=== PATIENT | male | born 1965 | race Caucasian/White ===

== ENCOUNTER 2022-01-26 06:08 | Inpatient (IN) ==
[~2022-01-26 06:08] MED LIST: Buffered Lidocaine 1% SYRIN 1 ml INTRADERM ONE; Lactated Ringers 1000 ml BAG 1,000 ML IV SCH
[2022-01-26] MEDS ORDERED: ceFAZolin 1 GM in Dextrose 1 GM/50 ML BAG ONE (06:58)
[2022-01-26] MEDS ORDERED: ceFAZolin 2 GM PREMIX 2 GM/50 ML BAG ONE (06:58)
[2022-01-26] MEDS ORDERED: Bupivacaine 0.25% SDV 30 ML ONE (07:09)
[2022-01-26] MEDS ORDERED: Bupivacaine 0.5% SDV PF 30ML VIAL ONE (07:09)
[2022-01-26] MEDS ORDERED: Lidocaine 1% VIAL 10 MG/ML VIAL 30 ML ONE (07:09)
[2022-01-26] MEDS ORDERED: fentaNYL 100 mcg/2 ml 50 MCG/ML VIAL ONE ×2 (07:19→13:15)
[2022-01-26] MEDS ORDERED: Midazolam 2 mg/2 ml VIAL 1 mg/ml 2 ml VIAL (2 mg) ONE (07:20)
[2022-01-26] MEDS ORDERED: Rocuronium 50 mg VIAL 10 mg/ml 5 ml VIAL (50 mg) ONE ×5 (07:38→10:11)
[2022-01-26] MEDS ORDERED: Dexamethasone IV 4 MG/ML VIAL 1 ml VIAL ONE (07:52)
[2022-01-26] MEDS ORDERED: Ondansetron 4 mg VIAL 2 MG/ML 2 ml VIAL ONE (07:52)
[2022-01-26] MEDS ORDERED: Propofol 10 MG/ML 20 ML BTL ONE (07:52)
[2022-01-26] MEDS ORDERED: Lidocaine 2% PF 5 ML VIAL ONE (07:52)
[2022-01-26] MEDS ORDERED: HYDROmorphone 0.5 MG/0.5 ML SYRINGE ONE ×3 (09:01→12:57)
[2022-01-26] MEDS ORDERED: Acetaminophen IV 1 GM/100ML 1,000 MG/100 ML BAG IV ONE (09:01)
[2022-01-26] MEDS ORDERED: Acetaminophen IV 1 GM/100ML 1,000 MG/100 ML BAG IV PRN (10:06)
[2022-01-26] MEDS ORDERED: fentaNYL 100 mcg/2 ml 50 MCG/ML VIAL IV PRN (10:06)
[2022-01-26] MEDS ORDERED: Ondansetron 4 mg VIAL 2 MG/ML 2 ml VIAL IV PRN (10:06)
[2022-01-26] MEDS ORDERED: Naloxone 0.4 mg VIAL 0.4 mg/ml 1 ml VIAL IV PRN (10:06)
[2022-01-26] MEDS ORDERED: HYDROmorphone 1 MG/1 ML SYRINGE IV PRN (10:06)
[2022-01-26] MEDS ORDERED: Cisatracurium 2 MG/ML MDV 5 ML ONE (11:05)
[2022-01-26] MEDS ORDERED: ceFAZolin 1 GM ADVAN 1 GM ADDV.VIAL IVPB ONE (11:32)
[2022-01-26] MEDS ORDERED: Sugammadex 500 MG/5 ML 5 ml VIAL IV PUSH ONE (12:17)
[2022-01-26] MEDS ORDERED: Sodium Chloride 0.9% 20 ML ONE (12:37)
[2022-01-26] MEDS ORDERED: ROPIVACAINE 5 MG/ML 30 ML BTL (0.5%) ONE (12:37)
[2022-01-26] MEDS ORDERED: HYDROmorphone 1 MG/1 ML SYRINGE ONE (13:15)
[2022-01-26] MEDS: Lactated Ringers 1000 ml BAG 1,000 ML IV SCH (14:51)
[2022-01-26] MEDS: HYDROmorphone 0.5 MG/0.5 ML SYRINGE IV SLOW PU PRN (15:09)
[2022-01-26] MEDS: Ondansetron 4 mg VIAL 2 MG/ML 2 ml VIAL IV PRN (22:07)
[2022-01-26] MEDS: [UNRECOGNIZED DRUG - REMARK] IVPB SCH (23:04)
[2022-01-26] MEDS: Enoxaparin 40 MG/0.4 ML SYR SUBCUT SCH (23:13)
[2022-01-27] MEDS: Ondansetron 4 mg VIAL 2 MG/ML 2 ml VIAL IV PRN ×5 (02:12→21:16)
[2022-01-27] MEDS: [UNRECOGNIZED DRUG - REMARK] IVPB SCH ×2 (04:43→12:39)
[2022-01-27] MEDS: Lactated Ringers 1000 ml BAG 1,000 ML IV SCH (05:45)
[2022-01-27] MEDS: Enoxaparin 40 MG/0.4 ML SYR SUBCUT SCH ×2 (08:00→21:18)
[2022-01-27] MEDS ORDERED: Lisinopril/HCTZ 10/12.5 TA(NF) PO SCH (09:00)
[2022-01-28] MEDS: HYDROmorphone 0.5 MG/0.5 ML SYRINGE IV SLOW PU PRN (00:45)
[2022-01-28] MEDS: Enoxaparin 40 MG/0.4 ML SYR SUBCUT SCH ×2 (09:29→20:44)
[2022-01-28] MEDS: Senna TAB 8.6 mg TAB PO SCH (09:58)
[2022-01-28] MEDS: Ondansetron 4 mg VIAL 2 MG/ML 2 ml VIAL IV PRN ×3 (11:42→22:43)
[2022-01-29] MEDS: Ondansetron 4 mg VIAL 2 MG/ML 2 ml VIAL IV PRN ×4 (03:01→22:06)
[2022-01-29] MEDS: Metoclopramide 5 MG/ML VIAL (10 mg) IV SLOW PU PRN (04:13)
[2022-01-29] MEDS: HYDROmorphone 0.5 MG/0.5 ML SYRINGE IV SLOW PU PRN ×2 (04:22→11:36)
[2022-01-29] MEDS ORDERED: Lactated Ringers 1000 ml BAG 1,000 ML IV SCH (08:00)
[2022-01-29 08:55] LABS: ABS Basophils 0.1 10^3/ul (0-0.2); ABS Lymphocytes 0.8 10^3/ul (1.0-4.8); ABS Monocytes 1.3 10^3/ul (0-0.8); ABS Neutrophils 9.5 10^3/ul (1.5-7.7); Eosinophil % 0.3 %; Hematocrit 39 % (42-52); Hemoglobin 12.7 g/dL (14.0-18.0); Lymphocyte % 6.9 %; Mean Corpuscular HGB Conc 33 g/dL (31-36); Mean Corpuscular Hemoglobin 29 pg (27-31); Mean Corpuscular Volume 88 fL (80-94); Mean Platelet Volume 7.8 fL (7.4-10.4); Platelet Count 392 10^3/uL (150-450); Red Blood Count 4.38 10^6 /uL (4.18-5.48); Red Cell Distribution Width 15 % (10-15); White Blood Count 11.7 10^3/uL (3.5-10.8)
[2022-01-29 09:14] LABS: Calcium 9.2 mg/dL (8.6-10.3); Magnesium 2.6 mg/dL (1.9-2.7); Phosphorus 4.4 mg/dL (2.5-5.0); eGFR CKD-EPI 40.4 (>60)
[2022-01-29 09:20] LABS: Potassium 5.2 mmol/L (3.5-5.0)
[2022-01-29] MEDS: Enoxaparin 40 MG/0.4 ML SYR SUBCUT SCH ×2 (09:28→21:06)
[2022-01-29] MEDS: Senna TAB 8.6 mg TAB PO SCH (09:29)
[2022-01-29] MEDS ORDERED: Phenol 1.4% Throat Spray 177 ml BTL MT PRN (10:11)
[2022-01-29] MEDS: Benzocaine/Menthol LOZ PO PRN ×2 (11:37→15:35)
[2022-01-29] MEDS: Lactated Ringers 1000 ml BAG 1,000 ML IV SCH (13:27)
[2022-01-30] MEDS: Metoclopramide 5 MG/ML VIAL (10 mg) IV SLOW PU PRN (01:54)
[2022-01-30] MEDS: Acetaminophen IV 1 GM/100ML 1,000 MG/100 ML BAG IV SCH ×2 (02:01→06:20)
[2022-01-30] MEDS: Lactated Ringers 1000 ml BAG 1,000 ML IV SCH (02:32)
[2022-01-30 06:03] LABS: ABS Eosinophils 0.1 10^3/ul (0-0.6); ABS Lymphocytes 0.5 10^3/ul (1.0-4.8); ABS Monocytes 1.1 10^3/ul (0-0.8); ABS Neutrophils 7.6 10^3/ul (1.5-7.7); Eosinophil % 0.9 %; Hematocrit 37 % (42-52); Hemoglobin 12.5 g/dL (14.0-18.0); Lymphocyte % 5.8 %; Mean Corpuscular HGB Conc 34 g/dL (31-36); Mean Corpuscular Hemoglobin 30 pg (27-31); Mean Corpuscular Volume 88 fL (80-94); Mean Platelet Volume 7.4 fL (7.4-10.4); Platelet Count 376 10^3/uL (150-450); Red Cell Distribution Width 15 % (10-15); White Blood Count 9.4 10^3/uL (3.5-10.8)
[2022-01-30 06:58] LABS: Potassium 4.6 mmol/L (3.5-5.0); eGFR CKD-EPI 67.1 (>60)
[2022-01-30] MEDS: Ondansetron 4 mg VIAL 2 MG/ML 2 ml VIAL IV PRN ×4 (07:27→22:33)
[2022-01-30] MEDS: Senna TAB 8.6 mg TAB PO SCH (07:50)
[2022-01-30] MEDS: Enoxaparin 40 MG/0.4 ML SYR SUBCUT SCH ×2 (09:25→22:27)
[2022-01-30] MEDS ORDERED: Lactated Ringers 1000 ml BAG 1,000 ML IV SCH (13:00)
[2022-01-30] MEDS ORDERED: Acetaminophen IV 1 GM/100ML 1,000 MG/100 ML BAG IV PRN (15:16)
[2022-01-31 07:03] LABS: Calcium 8.4 mg/dL (8.6-10.3); Potassium 4.2 mmol/L (3.5-5.0); eGFR CKD-EPI 98.9 (>60)
[2022-01-31] MEDS: Enoxaparin 40 MG/0.4 ML SYR SUBCUT SCH ×2 (10:42→21:18)
[2022-01-31] MEDS: Senna TAB 8.6 mg TAB PO SCH (10:42)
[2022-02-01] MEDS: Enoxaparin 40 MG/0.4 ML SYR SUBCUT SCH (08:53)
[2022-02-01] MEDS: Senna TAB 8.6 mg TAB PO SCH (08:55)
[2022-02-01 11:09] VITALS: BP 150/76
== END 2022-02-01 12:10 | disposition home or self-care (01) | DRG 227 ==
LOC: OR 06:08 → SSU 06:08
PROVIDERS: ADMIT Surgery Surgical Critical Care; ATTEND Surgery Surgical Critical Care